=== PATIENT | female | born 2000 | race Hispanic/Latino ===

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

== ENCOUNTER 2020-01-04 01:09 | Emergency (ER) | payer OTHER ==
[~2020-01-04] VITALS: Ht 162.6 cm; Wt 94.0 kg
[~2020-01-04 01:09] MED LIST changes: +PROTONIX40 MG PO
[2020-01-04 01:48] LABS: URINE BILIRUBIN - DIPSTICK NEGATIVE (NEGATIVE); URINE BLOOD DIPSTICK NEGATIVE (NEGATIVE); URINE COLOR YELLOW; URINE GLUCOSE - DIPSTICK NEGATIVE (NEGATIVE); URINE KETONE NEGATIVE (NEGATIVE); URINE NITRITE - DIPSTICK NEGATIVE (Negative); URINE PROTEIN - DIPSTICK NEGATIVE (NEG-TRACE); URINE SPECIFIC GRAVITY 1.025; URINE UROBILINOGEN - DIPSTICK 0.2 E.U./dL (0.2)
[2020-01-04 01:49] LABS: HEMATOCRIT 36.3 % (37.0-47.0); HEMOGLOBIN 11.7 g/dl (12.0-16.0); MEAN CELL VOLUME 91.4 fL CALC (80.0-100.0); MEAN CORPUSCULAR HGB 29.5 pG CALC (26.0-32.0); MEAN CORPUSCULAR HGB CONC 32.2 g/dL CAL (32.0-36.0); NEUT# 9.41 thou/uL (2.00-7.15); RED BLOOD COUNT 3.97 mill/uL (4.20-5.60); RED CELL DISTRI WIDTH 14.3 % (11.5-15.5)
[2020-01-04 02:00] LABS: ALBUMIN 3.9 g/dL (3.2-5.0); ALKALINE PHOSPHATASE 90 u/l (38-126); AMYLASE 77 u/l (30-110); ANION GAP 14 (6-22 (CALC)); BUN 8 mg/dL (7-17); BUN/CREATININE RATIO 14 (12-20 (CALC)); CARBON DIOXIDE 22 mmol/l (22-30); CHLORIDE 104 mmol/l (95-108); CREATININE 0.6 mg/dL (0.5-1.0); GFR > 60 ML/MIN (>=60 (CALC)); GFR FOR AFR.AMER. > 60 ML/MIN (>=60 (CALC)); LIPASE 118 u/l (23-300); SGOT/AST 20 u/l (14-36); SODIUM 136 mmol/l (137-146)
[2020-01-04 02:01] LABS: BILIRUBIN, TOTAL 0.2 mg/dL (0.0-1.4)
[2020-01-04 02:09] LABS: URINE LEUK ESTERASE MODERATE (NEGATIVE)
[2020-01-04 02:13] LABS: URINE BACTERIA FEW hpf; URINE SQUAMOUS EPITHELIAL CELL FEW EPI/hpf (0-FEW)
[2020-01-04 02:19] VITALS: BP 106/53
[2020-01-04] MEDS ORDERED: PEPCID20 MG PO (02:46)
== END 2020-01-04 03:02 | disposition home or self-care (01) ==
LOC: ED 01:09
PROVIDERS: Family Medicine
DX: K29.70 Gastritis, unspecified, without bleeding (principal)

== ENCOUNTER 2021-06-28 12:21 | Emergency (ER) | payer OTHER ==
[~2021-06-28] VITALS: Ht 162.6 cm; Wt 100.0 kg
[~2021-06-28 12:21] MED LIST changes: +PEPCID20 MG PO
[2021-06-28 12:55] VITALS: BP 123/64
[2021-06-28] MEDS ORDERED: AMOXICILLIN500 M2 PO (14:25)
== END 2021-06-28 14:50 | disposition home or self-care (01) ==
LOC: ED 12:21
DX: J02.9 Acute pharyngitis, unspecified (principal); Z20.822 Contact with and (suspected) exposure to COVID-19

== ENCOUNTER 2023-06-23 15:36 | Emergency (ER) | payer OTHER ==
[~2023-06-23] VITALS: Ht 162.6 cm; Wt 83.0 kg
[~2023-06-23 15:36] MED LIST changes: +AMOXICILLIN500 M2 PO
[2023-06-23] MEDS ORDERED: SODIUM CHLORIDE 0.9% 1,000 ML IV ONE (15:45)
[2023-06-23 16:07] LABS: BASO% 0.3 % (0-3); EOS% 3.6 % (0-8); HEMATOCRIT 38.9 % (37.0-47.0); HEMOGLOBIN 13.5 g/dl (12.0-16.0); IMMATURE GRANULOCYTES 0.2 % (0.0-5.0); LYMPH% 14.6 % (15-41); MEAN CELL VOLUME 87.8 fL CALC (80.0-100.0); MEAN CORPUSCULAR HGB 30.5 pG CALC (26.0-32.0); MEAN CORPUSCULAR HGB CONC 34.7 g/dL CAL (32.0-36.0); MONO% 4.8 % (2-13); NEUT# 10.08 thou/uL (2.00-7.15); NEUT% 76.5 % (42-76); RED BLOOD COUNT 4.43 mill/uL (4.20-5.60)
[2023-06-23 16:30] LABS: ALBUMIN 4.6 g/dL (3.2-5.0); ALKALINE PHOSPHATASE 51 u/l (38-126); ANION GAP 14 (6-22 (CALC)); BILIRUBIN, TOTAL 0.6 mg/dL (0.02-1.3); BUN 11 mg/dL (7-17); BUN/CREATININE RATIO 17 (12-20 (CALC)); CARBON DIOXIDE 21 mmol/l (22-30); CHLORIDE 106 mmol/l (95-108); CREATININE 0.7 mg/dL (0.5-1.0); GFR FOR AFR.AMER. > 60 ML/MIN (>=60 (CALC)); GFR OTHER RACES > 60 ML/MIN (>=60 (CALC)); SGOT/AST 29 u/l (14-36); SODIUM 137 mmol/l (137-146)
[2023-06-23 16:31] LABS: POTASSIUM 4.1 mmol/l (3.5-5.1)
[2023-06-23 16:36] VITALS: BP 107/46
[2023-06-23 16:52] LABS: URINE BLOOD DIPSTICK Negative (NEGATIVE); URINE GLUCOSE - DIPSTICK Negative (NEGATIVE); URINE KETONE >=160 mg/dL (NEGATIVE); URINE LEUK ESTERASE Negative (NEGATIVE); URINE NITRITE - DIPSTICK Negative (Negative); URINE PH 6.5 (4.5-8.0); URINE PROTEIN - DIPSTICK 100 mg/dL (NEG-TRACE); URINE SPECIFIC GRAVITY 1.025
[2023-06-23 16:57] LABS: URINE COLOR Dark yellow
[2023-06-23 17:00] VITALS: BP 112/63
[2023-06-23 17:00] LABS: URINE BACTERIA FEW hpf; URINE MUCUS FEW hpf (NONE-FEW); URINE WBC 0-2 WBC/hpf (0-5)
[2023-06-23 17:02] LABS: URINE SQUAMOUS EPITHELIAL CELL MODERATE EPI/hpf (0-FEW)
[2023-06-23 17:12] LABS: BETA-HCG, QUANT(RESULT NUMBER) 62348 mIU/mL
[2023-06-23 17:30] VITALS: BP 109/57
[2023-06-23] MEDS ORDERED: ZOFRAN4 MG/TAB PO (17:41)
[2023-06-23 18:00] VITALS: BP 109/57
== END 2023-06-23 18:04 | disposition home or self-care (01) ==
LOC: ED 15:36
PROVIDERS: Family Medicine
DX: O99.282 Endocrine, nutritional and metabolic diseases complicating pregnancy, second trimester (principal); E86.0 Dehydration; Z3A.14 14 weeks gestation of pregnancy